=== PATIENT | female | born 1950 | race Caucasian/White ===

== ENCOUNTER 2018-08-15 07:04 | Outpatient (CLI) | payer OTHER | END 2018-08-15 09:50 | disposition home or self-care (01) | LOC: LAB 07:04 | DX: E11.39 Type 2 diabetes mellitus with other diabetic ophthalmic complication (principal); I15.8 Other secondary hypertension; D68.32 Hemorrhagic disorder due to extrinsic circulating anticoagulants; D69.8 Other specified hemorrhagic conditions; I10 Essential (primary) hypertension ==